=== PATIENT | male | born 1950 | race Caucasian/White ===

== ENCOUNTER 2019-09-12 11:41 | Outpatient (CLI) | payer MEDICARE, SELFPAY ==
--- NOTE | ~2019-09-12 | XR_ITS ---
EXAMINATION: XR sacroiliac joints min 3V DATE: 09/12/2019 12:37 INDICATION: Sacrococcygeal disorder. Low back pain. TECHNIQUE: 3 views of the sacroiliac joints were obtained. COMPARISON: CT abdomen 04/27/2007 FINDINGS: Bone alignment is normal. No fracture. There is mild osteoarthritis of the sacroiliac joint s. IMPRESSION: 1. Mild osteoarthritis of the sacroiliac joints. No evidence of inflammatory arthropathy. Reviewed, dictated and finalized at location A. NGS ANALYST IMPRESSION: 1. Mild osteoarthritis of the sacroiliac joints. No evidence of inflammatory ar thropathy.
--- NOTE | ~2019-09-12 | XR_ITS ---
EXAMINATION: XR lumbar spine 6V w bending DATE: 09/12/2019 12:37 INDICATION: Low back pain. TECHNIQUE: 7 views of lumbar spine were obtained. COMPARISON: None. FINDINGS: There is 3 mm retrolisthesis of L2 on L3 and L3 on L4. Vertebral body heights are normal. T he spine is hypomobile with flexion and extension. There is 6 degrees dextrocurvature of lumbar spine . There is mildly decreased disc height at L1-L2, L2-L3, and L3-L4. There is multilevel mild facet lopez int osteoarthritis. At L5-S1, there is severe right and moderate left facet joint osteoarthritis. IMPRESSION: 1. Mild lumbar spondylosis. Reviewed, dictated and finalized at location A. AL CONTROL LICENSING WORKER IMPRESSION: 1. Mild lumbar spondylosis.
== END 2019-09-12 11:42 | disposition home or self-care (01) ==
LOC: ANHIMG 11:48
PROVIDERS: PCP Internal Medicine; Visit Provider Physician Assistant
DX: M53.3 Sacrococcygeal disorders, not elsewhere classified (principal); M47.896 Other spondylosis, lumbar region
CPT/HCPCS: 72114; 72202

== ENCOUNTER → 2019-09-15 15:31 | Outpatient (CLI) | payer MEDICARE, SELFPAY ==
--- NOTE | ~2019-09-15 | MR_ITS ---
EXAMINATION: MR lumbar spine wo con DATE: 09/15/2019 16:38 INDICATION: Low back pain. TECHNIQUE: Magnetic resonance imaging (MRI) of the lumbar spine was performed without intravenous con trast. Sequences included sagittal T2-weighted FSE, sagittal T2-weighted FS FSE, sagittal T1-weighted FSE, and axial T2-weighted FSE. COMPARISON: Lumbar spine radiographs 09/12/2019 FINDINGS: There is 9 degrees dextrocurvature of lumbar spine. There is 3 mm retrolisthesis of L2 on L 3 and L3 on L4. There are Schmorl's nodes at multiple levels. There is mildly decreased disc height a t L1-L2, L2-L3, and L3-L4. The distal spinal cord signal intensity is normal. The conus medullaris is at L1. The following disc levels are specifically discussed: L1-L2: The disc is bulging and has an annular fissure. There is mild bilateral facet joint osteoarthr itis. There is mild right neural foraminal stenosis. There is mild central canal stenosis. L2-L3: The disc is bulging and has an annular fissure. There is moderate right and mild left facet lopez int osteoarthritis. There is mild left neural foraminal stenosis. There is mild central canal stenosi s. L3-L4: The disc is bulging and has an annular fissure. There is mild bilateral facet joint osteoarthr itis. There is moderate right and mild left neural foraminal stenosis. There is mild central canal st enosis. L4-L5: The disc does not extend beyond the endplate margin. There is severe bilateral facet joint ost eoarthritis. There is mild right neural foraminal stenosis. There is no central canal stenosis. L5-S1: The disc does not extend beyond the endplate margin. There is severe bilateral facet joint ost eoarthritis. There is mild bilateral neural foraminal stenosis. There is no central canal stenosis. IMPRESSION: 1. Mild lumbar spondylosis. Reviewed, dictated and finalized at location A. LIFTER IMPRESSION: 1. Mild lumbar spondylosis.
== END ==
PROVIDERS: PCP Internal Medicine; Visit Provider Nurse Practitioner Family
DX: M47.816 Spondylosis without myelopathy or radiculopathy, lumbar region (principal)
CPT/HCPCS: 72148

== ENCOUNTER 2020-07-23 13:35 | Outpatient (CLI) | payer MEDICARE, SELFPAY ==
--- NOTE | ~2020-07-23 | CT_ITS ---
EXAMINATION: CT lung screening DATE: 07/23/2020 14:10 INDICATION: Personal history of nicotine dependence TECHNIQUE: Computed tomography (CT) of the chest was performed without intravenous contrast. The dose -length product was 310.20 mGy-cm. Automated exposure control and iterative reconstruction technique were employed. COMPARISON: Comparison to multiple prior studies sequentially, with oldest reviewed study dated 01/25. FINDINGS: No thoracic lymphadenopathy. Heart size normal. No significant pleural or pericardial effus ion. Mild atherosclerosis. Stable small low-density lesions of the adrenal glands, most likely benign adenomas. Fatty infiltration of the liver. Small nodules of the right upper lobe measuring 2 mm or l ess. No endobronchial lesions. There is linear consolidation in the right middle and bilateral lower lobes, most likely atelectasis/scarring. No endobronchial lesions. There are a few small scattered ca lcified granulomas in the lung parenchyma. Mild thoracic spondylosis. IMPRESSION: 1. Lung-RADS category 2: Benign appearance or behavior. Continue annual screening with noncontrast lo w-dose chest CT in 12 months. Reviewed, dictated and finalized at location A. ING SPECIALIST IMPRESSION: 1. Lung-RADS category 2: Benign appearance or behavior. Continue annual screeni ng with noncontrast low-dose chest CT in 12 months.
== END 2020-07-23 13:36 | disposition home or self-care (01) ==
PROVIDERS: PCP Internal Medicine; Visit Provider Nurse Practitioner Family
DX: Z12.2 Encounter for screening for malignant neoplasm of respiratory organs (principal); Z87.891 Personal history of nicotine dependence
CPT/HCPCS: G0297

== ENCOUNTER 2021-08-26 09:21 | Outpatient (CLI) | payer MEDICARE, SELFPAY ==
--- NOTE | ~2021-08-26 | CT_ITS ---
EXAMINATION: CT lung screening DATE: 08/26/2021 09:41 INDICATION: Z87.891 - Personal history of nicotine dependence TECHNIQUE: Computed tomography (CT) of the chest was performed without intravenous contrast. Addition al 3D reconstructions utilizing coronal maximum intensity projection (MIP) were performed. Automated exposure control and iterative reconstruction technique were employed. The dose-length product was 42 4.72 mGy-cm. COMPARISON: None FINDINGS: Thin linear bands of discoid atelectasis/scarring in the bilateral lower lobes, lingula and right mid dle lobe. Tiny calcified nodule at the right apex consistent with old granulomatous disease. No discr ete noncalcified pulmonary nodules identified. No pulmonary edema or pleural effusion. Heart size is normal. No pericardial effusion. Minimal atherosclerotic calcification at the proximal left anterior descending coronary artery. Thoracic aorta is normal in caliber. Indeterminant 2.0 x 1.7 cm nodule po sterior to the lower lobe of the right thyroid and right of the upper thoracic esophagus. No other pa thologically enlarged thoracic lymphadenopathy. Diffuse hepatic steatosis. 1.6 similar low-attenuatio n left adrenal adenoma. Small gas and fluid-filled diverticulum arising from the fundus of the stomac h. Severe lower cervical, moderate upper lumbar and mild thoracic spondylosis. IMPRESSION: 1. Lung-RADS category 1: Negative. Continue annual screening with noncontrast low-dose chest CT in 12 months. 2. Isolated 2.0 x 1.7 cm indeterminate nodule at the right side of the thoracic inlet. Differential w ould include enlarged lymph node which could be reactive, metastatic or lymphoma, an exophytic right thyroid nodule were parathyroid adenoma. Reviewed, dictated and finalized at location A. GHT LOADING SUPERVISOR IMPRESSION: 1. Lung-RADS category 1: Negative. Continue annual screening with noncontrast l ow-dose chest CT in 12 months. 2. Isolated 2.0 x 1.7 cm indeterminate nodule at the right side of the thoracic inlet. Differential would include enlarged lymph node which could be reactive, metastatic or lymphoma, an exophytic right thyroid nodule were parathyroid terell noma.
== END 2021-08-26 09:22 | disposition home or self-care (01) ==
LOC: ANHIMG 09:26
PROVIDERS: PCP Internal Medicine; Visit Provider Nurse Practitioner Family
DX: Z87.891 Personal history of nicotine dependence (principal)
CPT/HCPCS: 71271

== ENCOUNTER 2022-08-27 08:51 | Outpatient (CLI) | payer MEDICARE, SELFPAY ==
--- NOTE | ~2022-08-27 | CT_ITS ---
EXAMINATION: CT lung screening DATE: 08/27/2022 09:24 INDICATION: Former smoker TECHNIQUE: Computed tomography (CT) of the chest was performed without intravenous contrast. Automate d exposure control and iterative reconstruction technique were employed. Exam dose: 389.20 mGy-cm to josé exam DLP. COMPARISON: 120 CT lung screening FINDINGS: Again noted are thin linear band of discoid atelectasis or scarring in the lower lobes, rodri gula, middle lobe. No suspicious pulmonary mass lesion is identified. No pulmonary infiltrate or cons olidation. Mild emphysematous changes of the lungs. Normal heart size. No thoracic aortic aneurysm. No suspicious enlarged hilar or mediastinal mass lesi on or lymphadenopathy. Decreased size of previously reported soft tissue nodule at the right thoracic inlet/superior mediast inum since 08/26/2021 No pericardial or pleural effusion. Occasional pancreatic calcifications suggesting mild chronic pancreatitis. Mild nodularity of the left adrenal gland, stable since 08/26/2021. Diverticulum of the posterior aspect of the gastric fundus. Degenerative changes of the cervical and thoracic spine. IMPRESSION: BI-RADS Category 1: Negative. Continue annual screening with noncontrast low-dose chest CT in 12 months Reviewed, dictated and finalized at Location A. Reviewed, dictated and finalized at location B. NTION MANAGER IMPRESSION: BI-RADS Category 1: Negative. Continue annual screening with nonco ntrast low-dose chest CT in 12 months
== END 2022-08-27 08:52 | disposition home or self-care (01) ==
PROVIDERS: PCP Internal Medicine; Visit Provider Nurse Practitioner Family
DX: Z12.2 Encounter for screening for malignant neoplasm of respiratory organs (principal); Z87.891 Personal history of nicotine dependence
CPT/HCPCS: 71271

== ENCOUNTER 2022-10-17 09:58 | Outpatient (CLI) | payer MEDICARE, SELFPAY ==
[2022-10-17 11:04] LABS: Influenza A QL RT-PCR Negative (Negative); Influenza B QL RT-PCR Negative (Negative); RSV RNA, RT-PCR Negative (Negative); SARS-CoV-2 RNA PCR Negative
== END 2022-10-17 09:59 | disposition home or self-care (01) ==
LOC: ANHLAB 10:00
PROVIDERS: PCP Internal Medicine; Visit Provider Internal Medicine
DX: R50.9 Fever, unspecified (principal); Z20.822 Contact with and (suspected) exposure to COVID-19
CPT/HCPCS: 87637

== ENCOUNTER 2023-03-23 08:11 | Outpatient (CLI) | payer MEDICARE, SELFPAY ==
--- NOTE | 2023-03-23 08:21 | ECG_ITS ---
Measurements Intervals [place] Rate: 71 P: -13 NE: 170 QRS: 12 QRSD: 101 T: 45 QT: 362 QTc: 394 Interpretive Statements SINUS RHYTHM NORMAL ELECTROCARDIOGRAM COMPARED TO ECG 04/28/2019 09:46:59 NO SIGNIFICANT CHANGES Electronically Signed On 03-23-2023 16:53:04 CDT by Kunal Jewell M.D.
[2023-03-23 09:28] LABS: Anion Gap 7 mmol/L (8-16); Blood Urea Nitrogen 18 mg/dL (9-20); Calcium 9.2 mg/dL (8.4-10.2); Carbon Dioxide 26 mmol/L (22-30); Chloride 102 mmol/L (98-107); Estimated Glomerular Filt Rate > 60; Glucose 129 mg/dL (65-110); Sodium 135 mmol/L (137-145)
== END 2023-03-23 08:12 | disposition home or self-care (01) ==
LOC: ANHSURGERY 08:15
PROVIDERS: Anesthesiology; PCP Internal Medicine; Visit Provider Surgery
DX: Z01.818 Encounter for other preprocedural examination (principal); I49.8 Other specified cardiac arrhythmias; E11.9 Type 2 diabetes mellitus without complications; I10 Essential (primary) hypertension
CPT/HCPCS: 36415; 80048; 93005

== ENCOUNTER 2023-03-25 00:53 | Day surgery (SDC) | payer MEDICARE, SELFPAY ==
--- NOTE | 2023-03-18 09:14 | PC.NURSE ---
Report to the Outpatient Waiting Room, entrance under the green pavilion located off [facility], at time _0730 on date __03/25/23 . Planned Procedure Time: __929 . Time changes happen often and if your time is changed the preop area will call you the afternoon before. - You and your visitor will be asked to self-screen and do not enter if you have any COVID symptoms. - A mask is optional within the hospital at this time. Patients may have clear liquids (water, carbonated beverages, clear teas, apple juice) until 3 hours prior to surgery with a maximum of 20 ounces. - No food from midnight until time of surgery - Infants may have breast milk until 4 hours before surgery, infant formula 6 hours prior to surgery. - Children will be allowed to drink immediately following surgery. If applicable, please bring a bottle or sippy cup to assist with drinking. Juice, water, soda, and popsicles are readily available. For infants on formula, please bring formula the day of surgery. Pacifiers are allowed. Take the following medications with a SIP of water the morning of surgery: ___TRELEGY INHALER DO NOT STOP ANY OF YOUR OTHER PRESCRIPTION MEDICATIONS PRIOR TO SURGERY ?EXCEPT THE FOLLOWING Medications to discontinue per physician ___ALL VITAMINS AND SUPPLEMENTS 3 DAYS PRE OP.LAST DOSE 03/22/[address] LAY Please no make-up, nail kiswahili, hairspray, perfume, deodorant, or body powder the day of surgery. No jewelry (including any body piercings) or valuables the day of surgery, leave them at home. Please take a shower or bath the night before, or the morning of, surgery with an antibacterial soap. Wear comfortable, loose fitting clothing. Children are encouraged to wear pajamas. - Jewelry must be removed prior to entering the operating room. Rings and piercings that are not removed may be cut off. - The hospital will not accept responsibility for valuables. - Please leave all valuables, including medications, at home the day of surgery. If you are going home after surgery, a licensed experienced truck driver must drive you home. - NO public transportation without another adult if you receive anesthesia. - We recommend that an adult stay with you for 24 hours following discharge. - We also recommend that you do not drive, make important decision, drink alcoholic beverages, or take any drugs that were not prescribed by your health care provider for at least 24 hours after your discharge time. For Pediatric surgeries, we recommend two adults accompany the child home. Follow any additional instructions given to you from your surgeon. If you or anyone in your household have experienced Covid symptoms in the past week, please notify your surgeon or the nurse liaison at the phone number below for possible testing. Telephone instructions given to ____PATIENT and asked if any additional questions and then verbalized understanding. Patient advised to call surgeon office or pre surgery nurse liaison [phone] if any additional questions.
[2023-03-18 09:27] VITALS: BMI 34.0
[2023-03-25] VITALS (9 sets, daily range): BP systolic 127–158; BP diastolic 64–85; PULSE 62–88; RESP 11–18; TEMP 36–36.6; O2SAT 93–100
[2023-03-25] MEDS: ACETAMINOPHEN 500 MG TABLET 1000 MG PO (07:31)
[2023-03-25] MEDS: LACTATED RINGERS 1,000 ML 30 ML IV CONT (07:45)
[2023-03-25] MEDS: KETOROLAC 15 MG/ML VIAL (*BKC) IV PUSH (07:58)
[2023-03-25 07:59] LABS: Glucose Point of Care 122 mg/dl (65-105)
--- NOTE | 2023-03-25 08:14 | WPDANESEPPF ---
Anes - Initial Pre Proc Eval Procedure: Operation Date: 03/25/23 09:30 Proposed Procedures p Hemorrhoidectomy and Proctosigmoidoscopy - Jose L Saunders MD Date/Time: 03/25/23 08:14 Surgeon: Jose L Saunders MD Pre Op Diagnosis: internal and external hemorhoids with complication Patient Data Age: 72 Gender: M Height: 1.88 m Weight: 118.6 kg Last Vital Signs Temp 36.0 C L 03/25/23 07:50 Pulse 80 03/25/23 07:50 Resp 18 03/25/23 07:50 BP 156/79 H 03/25/23 07:50 Pulse Ox 96 03/25/23 07:50 O2 Del Method Room Air 03/25/23 07:50 Allergies Allergy/AdvReac Type Severity Reaction Status Date / Time No Known Allergies Allergy Verified 03/18/23 09:02 Home Medications Medication Instructions Recorded Confirmed Type cholecalciferol (vitamin D3) 25 1,000 unit PO DAILY 05/20/19 03/18/23 History mcg (1,000 unit) capsule doxycycline hyclate 20 mg tablet 20 mg PO HS 05/20/19 03/18/23 History multivitamin with minerals-folic 0.4 mg PO DAILY 05/20/19 03/18/23 History acid 0.4 mg tablet (Adult One Daily Multivitamin) potassium gluconate 595 mg (99 mg) 99 mg PO DAILY 05/20/19 03/18/23 History tablet aspirin 81 mg tablet,delayed 81 mg PO DAILY 12/14/19 03/18/23 History release magnesium gluconate 27 mg 27 mg PO DAILY 12/14/19 03/18/23 History magnesium (500 mg) tablet (Mag-G) psyllium husk (aspartame) 3.4 1 ea PO DAILY 06/27/20 03/18/23 History gram/5.8 gram oral powder (Metamucil Sugar-Free (aspartame)) lisinopril 5 mg tablet 5 mg PO DAILY #90 tabs 06/10/22 03/18/23 Rx albuterol sulfate 90 mcg/actuation 1 - 2 puff inhalation Q4-6H PRN 08/19/22 03/18/23 Rx aerosol inhaler shortness of breath or wheezing #8.5 grams fluticasone propionate 50 2 spray intranasal DAILY PRN nasal 09/04/22 03/18/23 Rx mcg/actuation nasal congestion #48 mL spray,suspension Trelegy Ellipta 100 mcg-62.5 1 inh inhalation Q24H #60 ea 09/23/22 03/18/23 Rx mcg-25 mcg powder for inhalation (exgiistsdgg-hisoisoyz-jvxbbllx) blood sugar diagnostic (OneTouch #100 ea 09/23/22 03/06/23 Rx Verio test strips) atorvastatin 20 mg tablet 20 mg PO HS #90 tabs 12/09/22 03/18/23 Rx glipizide 10 mg tablet, extended 10 mg PO DAILY #90 tabs 12/09/22 03/18/23 Rx release 24 hr metformin 500 mg tablet 1,000 mg PO BID #360 tabs 03/03/23 03/18/23 Rx semaglutide 0.25 mg or 0.5 mg (2 0.25 mg (0.368 mL) subcut WEEKLY 03/12/23 03/18/23 Rx mg/3 mL) subcutaneous pen injector #3 mL (Ozempic) cetirizine 10 mg tablet (Zyrtec) 10 mg PO DAILY 03/18/23 03/18/23 History docusate sodium 100 mg capsule 100 mg PO HS 03/18/23 03/18/23 History (Stool Softener) Laboratory Tests 03/25/23 07:57 POC Capillary Glucose 122 H mg/dl (65-105) Patient hx anesthesia problems: none Family hx anesthesia problems: none Results Review: All pre-operative results and documents have been reviewed as part of the pre-operative evaluation. [facility] Past Medical History Medical History BMI 37.0-37.9, adult COPD (chronic obstructive pulmonary disease) Diabetes type 2, controlled DVT prophylaxis Hyperlipidemia Neuropathy Obesity Obesity (BMI 30-39.9) MARYANN (obstructive sleep apnea) uses orthotic Osteoarthritis Surgical History Surgical History History of total knee replacement (TKR) Status post total left knee replacement Family History Family History Sibling Patient's sister is in good health Family history of diabetes mellitus in first degree relative Father Cerebrovascular accident Patient's father is Family history of cardiovascular disease Mother Patient's mother is Family history of arthritis Family history of pancreatic cancer, Onset Age: 82 Family history of malignant neoplasm Other D
--- NOTE | 2023-03-25 09:36 | WPDHPUPDATE1 ---
History and Physical Update Update Date/Time: 03/25/23 09:36 History and Physical has been reviewed, including an updated exam of the patient. There are NO changes in the patient's condition. Risks, benefits, and alternatives have been discussed and questions answered. Patient agrees to proceed with procedure.
[2023-03-25] MEDS: ceFAZolin 2 GM/D5W 50 ML 2 GM/50 ML BAG IVPB (09:45)
[2023-03-25] MEDS: BUPivacaine HCL 0.5% 10 ML AMP 30 ML INFILTRATE (10:13)
[2023-03-25 10:57] LABS: Glucose Point of Care 98 mg/dl (65-105)
--- NOTE | 2023-03-25 10:57 | W.PM.PROC2 ---
Procedure Note - Detailed Date of Procedure 03/25/23 Pre-op Diagnosis internal and external hemorhoids with complication Post-op Diagnosis Same Procedure Performed Proctosigmoidoscopy, excision right posterior complex internal and external hemorrhoids, rubber-band ligation left lateral internal hemorrhoids Surgeon Jose L Saunders MD Insurance Account Manager Leroy Anesthesia General and Local (0.25% Marcaine with Exparel) Indications Patient has chronic prolapsing and bleeding internal and external hemorrhoids. He is taken to surgery now for proctosigmoidoscopy and hemorrhoidectomy. Findings Patient had large prolapse complex of internal and external hemorrhoids in the right posterior location as well as large internal hemorrhoid complex with minimal external hemorrhoid in the left lateral position. Description of Procedure Patient was taken to surgery and induced into general anesthesia. He was then turned into a prone position and then positioned in prone elroy-knife position. The buttocks were taped apart. Prep and drape was carried out. I 1st looked at the anal canal using a small and then a medium Hill-Khan anoscope. Patient's prep was fair as he still had some stool even some solid stool in the anal canal and rectum, later seen on proctosigmoidoscopy. Once the hemorrhoids were noted, I then infiltrated local anesthetic. 20 cc deep subdermal was infiltrated circumferentially. 20 cc intra sphincteric was then infiltrated circumferentially. Proctosigmoidoscopy was carried out. I was able to go to 18 cm. No polyps or other lesions, particularly no sources of bleeding or stigmata of bleeding were seen more proximal than the anal canal. I then turned my attention to the inguinal canal. Unfortunately, with injection of the local, a large hematoma had formed submucosally on the patient's left side near the hemorrhoids. This was stable but made visualization more difficult. We turned our attention 1st to the right posterior complex of internal and external hemorrhoids. This complex was a stage IV hemorrhoid. I excised the internal as well as the external hemorrhoid. The wound was closed with running locking 3-0 chromic suture. The closure appeared hemostatic. I then turned my attention to the left lateral hemorrhoids. There was not much of in external hemorrhoid associated with the large internal hemorrhoids. I rubber-band ligated the internal hemorrhoids. This worked well and there was really no external hemorrhoid to be seen afterwards. I then again looked in the anal canal with Hill-Khan anoscope for other pathology. The previously mentioned submucosal hematoma was stable. There were no signs of mucosal ischemia. No other hemorrhoids or other pathology were seen. Instruments were removed. Xeroform gauze fluffs were placed over the rectum. These were taped in place. Patient was then returned to a supine position, awakened and extubated. He was taken to recovery in good condition. Estimated Blood Loss -10.0 Drains No Packing No Pathology Yes (Right posterior complex of internal and external hemorrhoids) Complications No immediate complications Condition Stable Disposition PACU [facility] Billing Surgery - Charge Forward: Surgery Billing (Excision single complex internal and external hemorrhoids, rubber-band ligation internal hemorrhoids, proctosigmoidoscopy.)
== END 2023-03-25 12:38 | disposition home or self-care (01) ==
PROVIDERS: PCP Internal Medicine; Visit Provider Surgery
PROC: (CPT 46260; principal; 2023-03-25 09:30)
DX: K64.8 Other hemorrhoids (principal); K64.4 Residual hemorrhoidal skin tags; J44.9 Chronic obstructive pulmonary disease, unspecified; E78.5 Hyperlipidemia, unspecified; E11.40 Type 2 diabetes mellitus with diabetic neuropathy, unspecified; G47.33 Obstructive sleep apnea (adult) (pediatric); Z79.51 Long term (current) use of inhaled steroids; Z79.82 Long term (current) use of aspirin; Z79.84 Long term (current) use of oral hypoglycemic drugs; Z79.899 Other long term (current) drug therapy; E66.9 Obesity, unspecified; Z68.33 Body mass index [BMI] 33.0-33.9, adult; Z87.891 Personal history of nicotine dependence
CPT/HCPCS: 46260; 36415; 80048; 82948; 88304; 93005; A9270; C9290; J0690; J1100; J1885; J2250; J2405; J2704; J2710; J3010; J7120

== ENCOUNTER 2023-04-21 11:15 | Outpatient (CLI) | payer MEDICARE, SELFPAY ==
[2023-04-21 12:31] LABS: SARS-CoV-2 RNA PCR Positive (Negative)
== END 2023-04-21 11:16 | disposition home or self-care (01) ==
PROVIDERS: PCP Internal Medicine; Visit Provider Internal Medicine
DX: J06.9 Acute upper respiratory infection, unspecified (principal)
CPT/HCPCS: 87635

== ENCOUNTER 2023-08-28 10:31 | Outpatient (CLI) | payer MEDICARE, SELFPAY ==
--- NOTE | ~2023-08-28 | CT_ITS ---
EXAMINATION: CT lung screening DATE: 08/28/2023 10:34 INDICATION: former smoker TECHNIQUE: Computed tomography (CT) of the chest was performed without intravenous contrast. Addition al 3D reconstructions utilizing coronal maximum intensity projection (MIP) were performed. Automated exposure control and iterative reconstruction technique were employed. The dose-length product was 44 5.13 mGy-cm. COMPARISON: None FINDINGS: There are scattered linear bands of discoid atelectasis/scarring most prominent in the bilateral lowe r lobes and to lesser degree in the basilar lingula and right middle lobe. Tiny calcified nodules in the right middle lobe consistent with old granulomatous disease. No other suspicious pulmonary nodule s, pneumonia, pulmonary edema or pleural effusion. Heart size is normal. Minimal scattered atheroscle rotic coronary artery calcification. No pericardial effusion. Thoracic aorta is normal in caliber. No pathologically enlarged thoracic lymphadenopathy. There is a gastric diverticulum at the fundus. 1.7 cm low-attenuation left adrenal adenoma. Visualized upper abdomen is otherwise unremarkable. Severe lower cervical and moderate thoracic and upper lumbar spondylosis. IMPRESSION: 1. Lung-RADS category 1: Negative. Continue annual screening with noncontrast low-dose chest CT in 12 months. Reviewed, dictated and finalized at location A. NT CUTTER IMPRESSION: 1. Lung-RADS category 1: Negative. Continue annual screening with noncontrast l ow-dose chest CT in 12 months.
== END 2023-08-28 10:32 | disposition home or self-care (01) ==
PROVIDERS: PCP Internal Medicine; Visit Provider Nurse Practitioner Family
DX: Z12.2 Encounter for screening for malignant neoplasm of respiratory organs (principal); Z87.891 Personal history of nicotine dependence
CPT/HCPCS: 71271

== ENCOUNTER 2024-08-31 10:23 | Outpatient (CLI) | payer MEDICARE, SELFPAY ==
--- NOTE | ~2024-08-31 | CT_ITS ---
CT Scan of the Chest without Contrast: Clinical Indication: Lung cancer screening, nicotine dependence Technique: Contiguous sections were acquired throughout the chest without intravenous contrast. Dose reduction technique was used on this scan by utilizing automated exposure control and iterative recon struction technique. The dose-length product (DLP) was 402.15 mGy-cm. COMPARISON: 08/28/2023 Findings: There is no evidence of any significant mediastinal, hilar or axillary lymphadenopathy. The mediastin al soft tissues appear normal. There is no evidence of pleural or pericardial effusion. No pulmonary nodule. There is mild right basilar atelectasis or scarring. Images through the upper abdomen reveal stable left adrenal adenoma. Impression: Lung RADS 1: Negative. 12 month follow-up screening CT advised. Reviewed, dictated and finalized at location . MBLER SHOW MOTOR Impression: Lung RADS 1: Negative. 12 month follow-up screening CT advised.
--- OUTSIDE RECORDS SUMMARY | 2024-09-01 23:16 | XMS_ITS | Encounter Summary ---
Author Organization [facility] Health Address [address] [facility] [place] [address] Care Team Providers Care Digital Community Manager Name Role Phone Kenney Nayak DO Primary Care Provider [phone]- [phone] Encounter Details Date Type Department Care Team (Late st Contact Info) Description 06/27/2023 Lab Requisition [facility] Lab [address] [facility], [place] [id number] Jose L Cali MD [address] [place] [address] Social History Tobacco Use Types Packs/Day Years Used Date Smoking Tobacco: Never Assessed Sex and Gender Information Value Date Recorded Sex Assigned at Not on file Gender Identity Not on file Sexual Orientation Not on file documented as of this encounter Plan of Treatment Not on file documented as of this encounter Procedures Procedure Name Priority Date/Time Associated Diagnosis Comments DERMATOPATHOLOGY Routine 06/24/2023 12:0 0 AM BUSINESS ANALYTICS INTERN documented in this encounter Results * DERMATOPATHOLOGY (06/24/2023 12:00 AM BUSINESS ANALYTICS INTERN) Case Report Dermatopathology Report ? Case: [id number] ? Authorizing Provider: ??Jose L Cali MD ?Collected: ? 06/24/2023 12:00 AM ? Ordering Location: ? [facility] ? Received: ?06/27/2023 08:00 AM ? Pathologist: ? Jo Ann Perdomo MD ? Specimen: ?Skin, left cheek at jawline ? 3 12:26 PM [facility] DERMATOPATHOLOGY LABORATORY Final Diagnosis Specimen A. SKIN, left cheek at jawline: HYPERPLASTIC (HYPERTROPHIC) ACTINIC KERATOSIS (L57.0) (see microscopic description) 3 12:26 PM [facility] DERMATOPATHOLOGY LABORATORY Clinical History R/O SCC, BCC, Kulwant, ISK 3 12:26 PM [facility] DERMATOPATHOLOGY LABORATORY Gross Description Specimen A: Received is one formalin filled container labeled with the patient's name and designated left cheek at jawline. The specimen consists of a shave biopsy measuring 7x5x2 mm. Jar 0. 3 12:26 PM [facility] DERMATOPATHOLOGY LABORATORY Microscopic Description Specimen A. SKIN, left cheek at jawline: There is hyperkeratosis. There is epidermal hyperplasia with disorderly maturation of keratinocytes with nuclear pleomorphism confined to the lower half of the epidermis. 3 12:26 PM [facility] DERMATOPATHOLOGY LABORATORY Disclaimer An external and internal positive and negative controls are appropriate for the histochemical, immunohistochemical and immunofluorescence stain(s) in this case (if any), except where stated explicitly. The performance characteristics of the stain(s) cited in this report were developed and its performance characteristic determined by the Dermatopathology Laboratory at [facility], directed by Dr. Stu Murguia. These tests need not be, and therefore are not, approved by the [place] Food and Drug Administration. The tests are used for clinical purposes. Billing Codes Specimen Charges Stain Charges 89006 1 3 12:26 PM BUSINESS ANALYTICS INTERN DERMATOPATHOLOGY LABORATORY Embedded Images 3 12:26 PM BUSINESS ANALYTICS INTERN DERMATOPATHOLOGY LABORATORY Pathology/Cytolog y TISSUE SPECIMEN FROM SKIN / Unknown 06/24/2023 06/27/2023 8:00 AM BUSINESS ANALYTICS INTERN Jose L Cali MD LAB - PATHOLOGY/CYTO LOGY ORDERABLES DERMATOPATHOLOGY LABORATORY [facility] - Department of Dermatology [facility] Medicine [address] [place] [address], [address] [phone] documented in this encounter Visit Diagnoses Not on filedocumented in this encounter Care Teams Digital Community Manager Relationship Specialty Start Date End Date Kenney Nayak DO [address] [facility] [address] [place] [address] PCP - General 02/14/16 documented as of this encounter
--- OUTSIDE RECORDS SUMMARY | 2024-09-01 23:16 | XMS_ITS | Clinical Summary ---
Author Organization [facility] Address [address] [place] [address] Care Team Providers Care Grease Remover Name Role Phone Kenney Nayak DO Primary Care Provider Source Comments [facility],non-owned Affiliates and Associated Physician Practices is amultiple site organization consisting of ambulatory clinics and hospital sitesin [place], [place], [place] and [place]. This disclosure is being madepursuant to the Care Everywhere program and may not contain all information available regarding this patient. Last updated 18.[facility] Social History Tobacco Use Types Packs/Day Years Used Date Smoking Tobacco: Never Assessed Sex and Gender Information Value Date Recorded Sex Assigned at Not on file Gender Identity Not on file Sexual Orientation Not on file Plan of Treatment Health Maintenance Due Date Last Done Comments COLOGUARD (AGES 45-75) - COL ON CA SCREENING 1949 COLON MONITORING 1949 COLONOSCOPY - COLON CA SCREENING 1949 CT COLONOGRAPHY - COLON CA SCREENING 1949 Colorectal Cancer Screening 1949 FIT - COLON CA SCREENING 1949 FLEX SIG - COLON CA SCREENING 1949 LIPID TESTING 1949 HEPATITIS C SCREENING 04/11/1967 DTAP/TDAP/TD VACCINES (1 - Tdap) 1968 PNEUMOCOCCAL VACCINE 50+ (1 of 1 - PCV) 1999 ZOSTER VACCINE (1 of 2) 1999 COVID-19 VACCINE ( - 2023-2 5 season) 2024 INFLUENZA VACCINE (#1) 2024 Respiratory Syncytial Virus (RSV) Vaccine Pt: or over 60 yrs (1 - 1-dose 75+ series) 2024 DEPRESSION SCREENING 08/10/2024 MEDICARE AWV ? CALENDAR YEAR 2024 HEPATITIS B VACCINE Aged Out No longe r eligible based on patient's age to complete this topic HIB VACCINE Aged Out No longer eligi ble based on patient's age to complete this topic HPV VACCINE Aged Out No longer eligi ble based on patient's age to complete this topic MENINGOCOCCAL (Group B) VACCINE Aged Out No longer eligible based on patient's age to complete this topic MENINGOCOCCAL VACCINE Aged Out No checo alisson eligible based on patient's age to complete this topic Care Teams Grease Remover Relationship Specialty Start Date End Date Kenney Nayak DO [address] [facility] [address] [place] [address] PCP - General 02/14/16
--- OUTSIDE RECORDS SUMMARY | 2024-09-01 23:16 | XMS_ITS | Encounter Summary ---
Author Organization [facility] Address [address] [place] [place] [address] Care Team Providers Care Communications Tower Technician Name Role Phone Kenney Nayak DO Primary Care Provider Encounter Details Date Type Department Care Team (Late st Contact Info) Description 08/25/2019 Lab Requisition [facility] [address] [place] [id number] Jose L Cali MD [address] [place] [address] Social History Tobacco Use Types [...] Priority Date/Time Associated Diagnosis Comments DERMATOPATHOLOGY Routine 08/24/2019 12:0 0 AM AUTOMOTIVE LEASING SALES REPRESENTATIVE documented in this encounter Results * DERMATOPATHOLOGY (08/24/2019 12:00 AM AUTOMOTIVE LEASING SALES REPRESENTATIVE) Case Report Dermatopathology Report ? Case: [id number] ? Authorizing Provider: ??Jose L Cali MD ?Collected: ? 08/24/2019 12:00 AM ? Ordering Location: ? [facility] ?Received: ?08/25/2019 12:34 PM ? Pathologist: ? Gerard Murguia MD ? Specimen: ?Skin, right upper inner arm ? 0 12:07 PM [facility] DERMATOPATHOLOGY LABORATORY Final Diagnosis Specimen A. SKIN, right upper inner arm: ACROCHORDON (SOFT FIBROMA, SKIN TAG) (L91.8) 0 12:07 PM [facility] DERMATOPATHOLOGY LABORATORY Clinical History R/O ISK, nevus, tag. 0 12:07 PM [facility] DERMATOPATHOLOGY LABORATORY Gross Description Specimen A: Received is one formalin filled container labeled with the patient's name and designated right upper inner arm. The specimen consists of a shave biopsy measuring 6x5p73ky, bisected. Jar 0. 0 12:07 PM [facility] DERMATOPATHOLOGY LABORATORY Microscopic Description Specimen A. SKIN, right upper inner arm: There is a gently folded epidermis surrounding a connective tissue core in which fat and collagen are intermingled. 0 12:07 PM [facility] DERMATOPATHOLOGY LABORATORY Disclaimer An external and internal positive and negative controls are appropriate for the histochemical, immunohistochemical and immunofluorescence stain(s) in this case (if any), except where stated explicitly. The performance characteristics of the stain(s) cited in this report were developed and its performance characteristic determined by the Dermatopathology Laboratory at [facility], directed by Dr. Stu Murguai. These tests need not be, and therefore are not, approved by the [place] Food and Drug Administration. The tests are used for clinical purposes. Billing Codes Specimen Charges Stain Charges 84015 1 0 12:07 PM AUTOMOTIVE LEASING SALES REPRESENTATIVE DERMATOPATHOLOGY LABORATORY Embedded Images 0 12:07 PM AUTOMOTIVE LEASING SALES REPRESENTATIVE DERMATOPATHOLOGY LABORATORY Pathology/Cytolog y TISSUE SPECIMEN FROM SKIN / Unknown 08/24/2019 08/25/2019 12:34 PM AUTOMOTIVE LEASING SALES REPRESENTATIVE Jose L Cali MD LAB - PATHOLOGY/CYTO LOGY ORDERABLES DERMATOPATHOLOGY LABORATORY [facility] - Department of Dermatology [address] [place] [address] 5th Floor Lab [address] [phone] documented in this encounter Visit Diagnoses Not on filedocumented in this encounter Additional Health Concerns Infection Onset Date Last Indicated Resolved Time COVID-19 Under Investigation 02/12/2020 02/12/2020 02/13/2020 6:11 PM CDT documented as of this encounter Care Teams Communications Tower Technician Relationship Specialty Start Date End Date Kenney Nayak DO [address] [facility] [address] [facility] [address] [place] [address] PCP - General 02/14/16 documented as of this encounter
--- OUTSIDE RECORDS SUMMARY | 2024-09-01 23:16 | XMS_ITS | Clinical Summary ---
Author Organization [facility] Address [address] [address] Phone Care Team Providers Care Assistant Media Planner Name Role Phone Kenney Nayak DO Primary Care Provider Allergies No known active allergies Medications Budesonide-Form oterol Fumarate (SYMBICORT IN) take 2 Puffs by inhalation every morning. Active Tiotropium [place] Monohydrate (SPIRIVA HANDIHALER IN) take 1 Cap by inhalation every morning. Active fluticasone (FLOVENT HFA) 110 MCG/ACT Aerosol take 2 Puffs by inhalation every evening. Active glimepiride (AMARYL) 2 MG Tablet Take 2 mg by mouth every morning. Active aspirin EC 81 MG Tablet Delayed Response Take 81 mg by mouth nightly. Active MULTIPLE VITAMIN PO Take 1 Tab by mouth daily. Active Doxycycline Hyclate 20 MG TabletIndicatio ns:gums Take by mouth 2 times daily. Active Potassium 99 MG Tablet Take 2 Tabs by mouth every morning. Active metFORMIN (GLUCOPHAGE) 500 MG Tablet Take 500 mg by mouth 2 times daily (with meals). Active vitamin D3 (CHOLECALCIFERO L) 500 UNIT Tablet Take 500 Units by mouth every morning. Active diphenhydrAMINE (BENADRYL) 25 MG Tablet Take 50 mg by mouth 2 times daily. Active FLUTICASONE PROPIONATE, NASAL, NA 1 [place] by Nasal route every evening. Active atorvastatin (LIPITOR) 20 MG Tablet Take 20 mg by mouth every evening. Active Liraglutide (VICTOZA SC) 0.6 mg by Subcutaneous route every morning. Active Magnesium 250 MG Tablet Take by mouth every morning. Active Polyethylene Glycol 3350 (MIRALAX PO) Take by mouth. Ac tive Family History Medical History Relation Name Comments Diabetes Brother Stroke Father Cancer Mother pancreatic Relation Name Status Comments Brother Father Mother Social History Tobacco Use Types Packs/Day Years Used Date Smoking Tobacco: Former Cigarettes 1 53.1 1 08/31/1964 - 08/10/2018 Smokeless Tobacco: Never Tobacco Cessation:Counseling Given: No Alcohol Use Standard Drinks/Week Comments No 0 (1 standard drink = 0.6 oz pur e alcohol) Sex and Gender Information Value Date Recorded Sex Assigned at Not on file Legal Sex Male 8:51 PM CDT Gender Identity Not on file Sexual Orientation Not on file Last Filed Vital Signs Vital Sign Reading Time Taken Comments Blood Pressure 132/76 04/12/2020 1:49 PM CDT Pulse 95 04/12/2020 1:49 PM CDT Temperature 36.3 ??C (97.4 ??F) 04/12/2020 1:49 PM CD T Respiratory Rate 22 04/12/2020 1:49 PM CDT Oxygen Saturation 95% 04/12/2020 1:49 PM CDT Inhaled Oxygen Concentration - - Weight 128.4 kg (283 lb) 04/12/2020 1:49 PM CDT Height 188 cm (6' 2 ) 04/12/2020 1:49 PM CDT Body Mass Index 36.34 04/12/2020 1:49 PM CDT Plan of Treatment Health Maintenance Due Date Last Done Comments Hepatitis C Virus (HCV) Screening 1950 TdaP Immunization 1950 Cologuard 1999 Immunochemical Fecal Occult Blood 1999 Influenza Immunization (#1) 04/10/202404/10, 04/08/2017, 04/23/2016, Additional history exists SARS-COV-2 Immunization ( season) 2024 05/06/2021, 10/09/2020, 09/09/2020 Respiratory Syncytial Virus (RSV) Immunization (Adult) (1 - 1-dose 75+ series) 2024 Colonoscopy 02/14/2025 02/15/2020, 05/11, 07/14/2017 Colorectal Cancer Screening 02/14/2025 02/15/2020, 05/11, 07/14/2017 Pneumococcal Immunization (50+ years) Completed 04/09/2018, 04/08/2017 Pneumococcal Immunization Combined Discontinued 04/09/2018, 04/08/2017 Zoster Immunization Completed 08/24/2018, 05/27/2018, 10/06/2014 Hepatitis B Immunization Aged Out No longer eligible based on patient's age to complete this topic Meningococcal Immunization (ACWY) Aged Out No longer eligible based on patient's age to complete this topic Rotavirus Immunization Aged Out No lo nger eligible based on patient's age to complete this topic [facility] Care Teams Assistant Media Planner Relationship Specialty Start Date End Date Kenney Nayak DO [address] [place] [address] PCP - General Internal Medicine 05/06/17
--- OUTSIDE RECORDS SUMMARY | 2024-09-01 23:16 | XMS_ITS | Referral Summary ---
Author Organization [facility] Address [address] [facility] [address] Care Team Providers Care Card Folder Name Role Phone Kenney Nayak DO Primary Care Provider [phone]- [phone] Source Comments [facility],non-owned Affiliates and Associated Physician Practices is amultiple site organization consisting of ambulatory clinics and hospital sitesin [place], [place], [place] and [place]. This disclosure is being madepursuant to the Care Everywhere program and may not contain all information available regarding this patient. Last updated 18.[facility] [employer] Social History Tobacco Use Types Packs/Day Years Used Date Smoking Tobacco: Never Assessed Sex and Gender Information Value Date Recorded Sex Assigned at Not on file Gender Identity Not on file Sexual Orientation Not on file Plan of Treatment Not on file Care Teams Card Folder Relationship Specialty Start Date End Date Kenney Nayak DO [address] [facility] [address] [place] [address] PCP - General 02/14/16
--- OUTSIDE RECORDS SUMMARY | 2024-09-01 23:16 | XMS_ITS | Patient Health Summary ---
Author Organization [facility] Address [address] [place] [address] Care Team Providers Care Supervisor Concrete Pipe Plant Name Role Phone Kenney Nayak DO Primary Care Provider [phone] Note from [facility],non-owned Affiliates and Associated Physician Practices is amultiple site organization consisting of ambulatory clinics and hospital sitesin [place], [place], [place] and [place]. This disclosure is being madepursuant to the Care Everywhere program and may not contain all information available regarding this patient. Last updated 18.[facility] Social History Tobacco Use Types Packs/Day Years Used Date Smoking Tobacco: Never Assessed Sex and Gender Information Value Date Recorded Sex Assigned at Not on file Gender Identity Not on file Sexual Orientation Not on file Procedures * DERMATOPATHOLOGY(Performed 06/24/2023) * DERMATOPATHOLOGY(Performed 07/23/2021) * SARS-COV-2 (COVID-19) IN HOUSE(Performed 02/12/2020) * DERMATOPATHOLOGY(Performed 08/24/2019) * DERMATOPATHOLOGY(Performed 02/13/2016) Results * DERMATOPATHOLOGY (06/24/2023 12:00 AM RESIDENTIAL GLAZIER) Only the most recent of4 resultswithin the time period is included. Case Report Dermatopathology Report ? Case: [id number] ? Authorizing Provider: ??Jose L Cali MD ?Collected: ? 06/24/2023 12:00 AM ? Ordering Location: ? [facility] ? Received: ?06/27/2023 08:00 AM ? Pathologist: ? Jo Ann Perdomo MD ? Specimen: ?Skin, left cheek at jawline ? 3 12:26 PM [facility] DERMATOPATHOLOGY LABORATORY Final Diagnosis Specimen A. SKIN, left cheek at jawline: HYPERPLASTIC (HYPERTROPHIC) ACTINIC KERATOSIS (L57.0) (see microscopic description) 3 12:26 PM [facility] DERMATOPATHOLOGY LABORATORY Clinical History R/O SCC, BCC, Kulwant, ISK 3 12:26 PM [facility] DERMATOPATHOLOGY LABORATORY Gross Description Specimen A: Received is one formalin filled container labeled with the patient's name and designated left cheek at jawline. The specimen consists of a shave biopsy measuring 7x5x2 mm. Jar 0. 3 12:26 PM [facility] DERMATOPATHOLOGY LABORATORY Microscopic Description Specimen A. SKIN, left cheek at jawline: There is hyperkeratosis. There is epidermal hyperplasia with disorderly maturation of keratinocytes with nuclear pleomorphism confined to the lower half of the epidermis. 3 12:26 PM [facility] DERMATOPATHOLOGY LABORATORY Disclaimer An external and internal positive and negative controls are appropriate for the histochemical, immunohistochemical and immunofluorescence stain(s) in this case (if any), except where stated explicitly. The performance characteristics of the stain(s) cited in this report were developed and its performance characteristic determined by the Dermatopathology Laboratory at [facility], directed by Dr. Stu Murguia. These tests need not be, and therefore are not, approved by the [place] Food and Drug Administration. The tests are used for clinical purposes. Billing Codes Specimen Charges Stain Charges 43540 1 3 12:26 PM RES[facility] G[facility]IER DERMATOPATHOLOGY LABORATORY Embedded Images 3 12:26 PM RESIDENT[facility] GLAZIER DERMATOPATHOLOGY LABORATORY Pathology/Cytolog y TISSUE SPECIMEN FROM SKIN / Unknown 06/24/2023 06/27/2023 8:00 AM RESIDENTIAL GLAZIER Jose L Cali MD LAB - PATHOLOGY/CYTO LOGY ORDERABLES DERMATOPATHOLOGY LABORATORY [facility] - Department of Dermatology [address], [address] [phone] * SARS-COV-2 (COVID-19) IN HOUSE (02/12/2020 9:30 AM CDT) COVID-19 PCR Not detected Not detected, Invalid 02/13/2020 6:11 PM CDT [facility] MICROBIOLOG[facility] Microbiology SPECIMEN FROM NASOPHARYNGEAL STRUCTURE / Unknown Collection / Unknown 02/12/2020 9:30 AM CDT 02/12/2020 4:36 PM CDT Narrative [facility]CRO[facility] - 02/13/2020 6:11 PM CDT This Real Time RT-PCR assay was developed and its performance characteristics determined by [facility]. This test has been authorized by the Food and Drug administration (FDA)under an Emergency Use Authorization (EUA). This test has been validated in accordance with the FDA's guidance document Policy for Diagnostic Testing in Laboratories Certified to perform High Complexity Testing under CLIA prior to Emergency Use Authorization for Coronavirus Disease-2019 during the Public Health Emergency issued on October 08, 2019. FDA independent review of this validation is pending. This test is only authorized for the duration of time the declaration that circumstances exist justifying the authorization of emergency use of in vitro diagnostic tests for detection of SARS-CoV-2 virus and/or diagnosis of COVID-19 infection under section 564(b)(1) of the Act, 21 U.S.C 360bbb-3 (b)(1), unless the authorization is terminated or revoked sooner. Umesh Brewer DO LAB - MICROBIOLOGY O RDERABLES [facility] [address] [place], [place] [address], [facility] [phone] Care Teams Supervisor Concrete Pipe Plant Relationship Specialty Start Date End Date Kenney Nayak DO [address] [facility] [address] [facility] [address] [place], [place] [id number] PCP - General 02/14/16
--- OUTSIDE RECORDS SUMMARY | 2024-09-01 23:16 | XMS_ITS | Encounter Summary ---
Author Organization [facility] Address [address] [facility] [place] [address] Care Team Providers Care Biology Faculty Member Name Role Phone Kenney Nayak DO Primary Care Provider [phone] Encounter Details Date Type Department Care Team (Late st Contact Info) Description 02/12/2020 Lab Requisition [facility] [address] [place] [address] Umesh Brewer DO [address] [place] [address] Social History Tobacco Use Types Packs/Day Years Used Date Smoking Tobacco: Never Assessed Sex and Gender Information Value Date Recorded Sex Assigned at Not on file Gender Identity Not on file Sexual Orientation Not on file documented as of this encounter Plan of Treatment Not on file documented as of this encounter Procedures Procedure Name Priority Date/Time Associated Diagnosis Comments SARS-COV-2 (COVID-19) IN HOUSE Routine 02/12/2020 9:30 AM CDT documented in this encounter Results * SARS-COV-2 (COVID-19) IN HOUSE (02/12/2020 9:30 AM CDT) COVID-19 PCR Not detected Not detected, Invalid 02/13/2020 6:11 PM CDT [facility]CROBI[facility] Microbiology SPECIMEN FROM NASOPHARYNGEAL STRUCTURE / Unknown Collection / Unknown 02/12/2020 9:30 AM CDT 02/12/2020 4:36 PM CDT Narrative [facility] - 02/13/2020 6:11 PM CDT This Real Time RT-PCR assay was developed and its performance characteristics determined by [facility]biology Laboratory. This test has been authorized [...] Brewer DO LAB - MICROBIOLOGY O RDERABLES [facility] [address] [place] [address], [facility] [phone] documented in this encounter Visit Diagnoses Not on filedocumented in this encounter Additional Health Concerns Infection Onset Date Last Indicated Resolved Time COVID-19 Under Investigation 02/12/2020 02/12/2020 02/13/2020 6:11 PM CDT documented as of this encounter Care Teams Biology Faculty Member Relationship Specialty Start Date End Date Kenney Nayak DO [address] [place] [address] PCP - General 02/14/16 documented as of this encounter
--- OUTSIDE RECORDS SUMMARY | 2024-09-01 23:16 | XMS_ITS | Encounter Summary ---
Author Organization [facility] Address [address] [place] [address] Care Team Providers Care Lighting Engineer Name Role Phone Kenney Nayak DO Primary Care Provider Encounter Details Date Type Department Care Team (Late st Contact Info) Description 07/24/2021 Lab Requisition [facility] Care DermPath Lab [address] [place] [id number] Jose L Cali MD [address] [place] [address] Social History Tobacco Use Types [...] Priority Date/Time Associated Diagnosis Comments DERMATOPATHOLOGY Routine 07/23/2021 12:0 0 AM SQUEEGEE OPERATOR documented in this encounter Results * DERMATOPATHOLOGY (07/23/2021 12:00 AM SQUEEGEE OPERATOR) Case Report Dermatopathology Report ? Case: [id number] ? Authorizing Provider: ??Jose L Cali MD ?Collected: ? 07/23/2021 12:00 AM ? Ordering Location: ? [facility] ?Received: ?07/24/2021 12:50 PM ? Pathologist: ? Ananya Wiley MD ? Specimen: ?Skin, left proximal extensor forearm ? 8:34 AM [facility] DERMATOPATHOLOGY LABORATORY Amended Report Gross description changed from shave biopsy to shave removal. 8:34 AM [facility] DERMATOPATHOLOGY LABORATORY Final Diagnosis Specimen A. 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 Lopez's. BCC. Check margins 8:34 AM [facility] DERMATOPATHOLOGY LABORATORY Gross Description Specimen A: Received is one formalin filled container labeled with the patient's name and designated left proximal extensor forearm. The specimen consists of a shave removal measuring 09z72x3 mm, inked. Jar 0. 8:34 AM [facility] DERMATOPATHOLOGY LABORATORY Microscopic Description Specimen A. SKIN, left proximal extensor forearm: The epidermis shows parakeratosis, full thickness disorderly maturation of keratinocytes, mitoses at different levels, and dyskeratotic cells. This lesion is not present at the sampled margin of the specimen. 8:34 AM [facility] DERMATOPATHOLOGY LABORATORY Disclaimer An external and internal positive and negative controls are appropriate for the histochemical, immunohistochemical and immunofluorescence stain(s) in this case (if any), except where stated explicitly. The performance characteristics of the stain(s) cited in this report were developed and its performance characteristic determined by the Dermatopathology Laboratory at [facility], directed by Dr. Stu Murguia. These tests need not be, and therefore are not, approved by the [place] Food and Drug Administration. The tests are used for clinical purposes. Billing Codes Specimen Charges Stain Charges 04066 1 1 8:34 AM SQUEEGEE OPERATOR DERMATOPATHOLOGY LABORATORY Embedded Images 1 8:34 AM SQUEEGEE OPERATOR DERMATOPATHOLOGY LABORATORY Pathology/Cytolog y TISSUE SPECIMEN FROM SKIN / Unknown 07/23/2021 07/24/2021 12:50 PM SQUEEGEE OPERATOR Jose L Cali MD LAB - PATHOLOGY/CYTO LOGY ORDERABLES DERMATOPATHOLOGY LABORATORY [facility] - Department of Dermatology [address], [address] [phone] documented in this encounter Visit Diagnoses Not on filedocumented in this encounter Care Teams Lighting Engineer Relationship Specialty Start Date End Date Kenney Nayak DO [address] [facility] [address] [facility] [address] [place] [address] PCP - General 02/14/16 documented as of this encounter
== END 2024-08-31 10:24 | disposition home or self-care (01) ==
PROVIDERS: PCP Internal Medicine; Visit Provider Nurse Practitioner Family
DX: Z12.2 Encounter for screening for malignant neoplasm of respiratory organs (principal); Z87.891 Personal history of nicotine dependence
CPT/HCPCS: 71271

== ENCOUNTER 2025-01-19 09:22 | Outpatient (CLI) | payer MEDICARE, SELFPAY ==
--- NOTE | ~2025-01-19 | US_ITS ---
TESTICULAR ULTRASOUND (Doppler ultrasound interrogation techniques used as needed for this exam.) Ordering provider: Tray Jewell DO History: . N50.89 - Other specified disorders of the male genital or... . Comparison: None. FINDINGS: TESTICLES: Normal in size. The right measures 3.8x 2.4x 3.3 cm and the left measures 3.9x 2.2x 3 cm. Normal echogenicity bilaterally without mass lesion. Normal Doppler flow bilaterally. EPIDIDYMIDES: Normal in size. The right measures 2 x 0.7 cm and the left 1x1.4 cm. Normal echogenicit y bilaterally. Both demonstrate normal Doppler flow. Small left epididymal cyst measuring 7 x 5 x 6 m m. HYDROCELE: Small bilateral. VARICOCELE: None. OTHER ABNORMALITY: None seen. IMPRESSION: Small bilateral hydrocele. Small left epididymal cyst. Otherwise, normal testicular ultrasound. Reviewed, dictated and finalized at location A. IMPRESSION: Small bilateral hydrocele. Small left epididymal cyst. Otherwise, normal testic ular ultrasound.
== END 2025-01-19 09:23 | disposition home or self-care (01) ==
LOC: GOSHIMG 09:22
PROVIDERS: PCP Internal Medicine; Visit Provider Internal Medicine
DX: N43.3 Hydrocele, unspecified (principal); N50.3 Cyst of epididymis; N50.89 Other specified disorders of the male genital organs
CPT/HCPCS: 76870; 93976

== ENCOUNTER 2025-05-13 15:20 | Emergency (ER) | payer MEDICARE, SELFPAY ==
--- NOTE | ~2025-05-13 | CT_ITS ---
Adrian Townsend EXAMINATION: CT abdomen pelvis wo/w con COMPARISON: No comparisons available. HISTORY: hematuria TECHNIQUE: Axial images were obtained through the abdomen, pelvis pre and post administration of IV contrast. Oral contrast administered. Coronal reconstruction images were obtained from the axial views. CT scan performed using dose optimization techniques including the following automated exposure control; adjustment of mA and/or kV; use of iterative reconstruction technique. Automatic exposure control was used to reduce radiation dose. Permanent radiation dose record is archived to PACS. FINDINGS: CT abdomen: LUNG BASES: Lung bases chronic changes. LIVER: Mild hepatic steatosis. SPLEEN: Unremarkable. KIDNEYS: Right Kidney: Right kidney midpole simple cyst 1 x 1 cm. Left Kidney: Left kidney midpole simple appearing cyst 1 x 1 cm. ADRENAL GLANDS: Left adrenal lesion measures 1.5 x 1 cm Hounsfield units -1 probable benign adrenal adenoma. Right adrenal gland Subcentimeter nodule too small to characterize. PANCREAS: Unremarkable. GALLBLADDER/BILIARY: Unremarkable. No biliary dilatation. STOMACH AND ESOPHAGUS: Visualized stomach and esophagus within normal limits. BOWEL/MESENTERY: Moderate fecal content. Moderate diverticulosis. No colitis or diverticulitis. Appendix normal. Mesentery normal. No dilated loops of small bowel. ADENOPATHY/RETROPERITONEUM: No lymphadenopathy. AORTA/VASCULATURE: Normal caliber aorta. FREE FLUID OR FREE AIR: None. CT pelvis: SOLID ORGANS/REPRODUCTIVE: Unremarkable. BLADDER: Within normal limits. OSSEOUS STRUCTURES: No acute osseous abnormality.No suspicious lesions. OVERLYING SOFT TISSUES: Small fat-containing left inguinal hernia. IMPRESSION: 1. No etiology to explain the patient's hematuria. 2. Incidental findings above Reviewed, dictated and finalized at location P.
--- OUTSIDE RECORDS SUMMARY | 2025-05-13 15:22 | XMS_ITS | Clinical Summary ---
Author Organization [facility] Address [address] [address] Phone Care Team Providers Care Gun Stocker Name Role Phone Kenney Nayak DO Primary Care Provider Allergies No known active allergies Medications Budesonide-Form oterol Fumarate (SYMBICORT IN) take 2 Puffs by inhalation every morning. Active Tiotropium [place] Monohydrate (SPIRIVA HANDIHALER IN) take 1 Cap [...] daily. Active FLUTICASONE PROPIONATE, NASAL, NA 1 [place] by Nasal route every evening. Active atorvastatin [...] 95 04/12/2020 1:49 PM CDT Temperature 36.3 C (97.4 F) 04/12/2020 1:49 PM CDT Respiratory Rate 22 04/12/2020 1:49 PM CDT Oxygen Saturation 95% 04/12/2020 1:49 PM CDT Inhaled Oxygen Concentration - - Weight 128.4 kg (283 lb) 04/12/2020 1:49 PM CDT Height 188 cm (6' 2) 04/12/2020 1:49 PM CDT Body Mass Index 36.34 04/12/2020 1:49 PM CDT Plan of Treatment Health Maintenance Due Date Last Done Comments Hepatitis C Virus (HCV) Screening 1950 TdaP Immunization 1950 Medicare Initial AWV [id number] 08/10/2017 Respiratory Syncytial Virus (RSV) Immunization (Adult) (1 - 1-dose 75+ series) 2024 Influenza Immunization (#1) 04/10/202504/10, 04/08/2017, 04/23/2016, Additional history exists SARS-COV-2 Immunization ( - 2024- season) 2025 05/06/2021, 10/09/2020, 09/09/2020 Pneumococcal Immunization (50+ years) Completed 04/09/2018, 04/08/2017 Pneumococcal Immunization Combined Discontinued 04/09/2018, 04/08/2017 Zoster Immunization Completed 08/24/2018, 05/27/2018, 10/06/2014 Colonoscopy Discontinued 02/15/2020, 05/11, 07/14/2017 Colorectal Cancer Screening Discontinued Cologuard Discontinued Hepatitis B Immunization Aged Out No longer eligible based on patient's age to complete this topic Human Papillomavirus (HPV) Immunization Aged Out No longer eligible based on patient's age to complete this topic Immunochemical Fecal Occult Blood Discontinued Meningococcal Immunization (ACWY) Aged Out No longer eligible based on patient's age to complete this topic Rotavirus Immunization Aged Out No lo nger eligible based on patient's age to complete this topic Insurance [facility]IC[facility] Care Teams Gun Stocker Relationship Specialty Start Date End Date Kenney Nayak DO [address] [place] [address] PCP - General Internal Medicine 05/06/17
--- OUTSIDE RECORDS SUMMARY | 2025-05-13 15:22 | XMS_ITS | Clinical Summary ---
Author Organization [facility] Address [address] [facility] [place] [address] Care Team Providers Care Strawberry Grower Name Role Phone Kenney Nayak DO Primary Care Provider [phone] Source Comments [facility],non-owned Affiliates and Associated Physician Practices is amultiple site organization consisting of ambulatory clinics and hospital sitesin [place], [place], [place] and [place]. This disclosure is being madepursuant to the Care Everywhere program and may not contain all information available regarding this patient. Last updated 18.[facility] [employer] Social History Tobacco Use Types Packs/Day Years Used Date Smoking Tobacco: Never Assessed Sex and Gender Information Value Date Recorded Sex Assigned at Not on file Legal Sex Male 5:57 PM SOLAR PANEL INSTALLATION SUPERVISOR Gender Identity Not on file Sexual Orientation Not on file Plan of Treatment Health Maintenance Due Date Last Done Comments HEPATITIS C SCREENING 04/11/1967 DTAP/TDAP/TD VACCINES (1 - Tdap) 1968 PNEUMOCOCCAL VACCINE 50+ (1 of 1 - PCV) 1999 ZOSTER VACCINE (1 of 2) 1999 Respiratory Syncytial Virus (RSV) Vaccine Pt: or over 60 yrs (1 - 1-dose 75+ series) 2024 DEPRESSION SCREENING 08/10/2024 MEDICARE AWV CALENDAR YEAR 2024 COVID-19 VACCINE ( - 2023-2 5 season) 2025 INFLUENZA VACCINE (#1) 2025 HEPATITIS B VACCINE Aged Out No longe r eligible based on patient's age to complete this topic HIB VACCINE Aged Out No longer eligi ble based on patient's age to complete this topic HPV VACCINE Aged Out No longer eligi ble based on patient's age to complete this topic MENINGOCOCCAL (Group B) VACC INE SHARED DECISION-MAKING Aged Out No longer eligibl e based on patient's age to complete this topic MENINGOCOCCAL GROUPS A/C/Y/W VACCINE Aged Out No longer eligible b ased on patient's age to complete this topic Insurance AETNA MEDICARE ADV AETNA MEDICARE ADV Care Teams Strawberry Grower Relationship Specialty Start Date End Date Kenney Nayak DO [address] [facility] [address] [place] [address] PCP - General 02/14/16
--- OUTSIDE RECORDS SUMMARY | 2025-05-13 15:22 | XMS_ITS | Encounter Summary ---
Author Organization [facility] Address [address] [place] [address] Care Team Providers Care Drywall Hanger Name Role Phone Kenney Nayak DO Primary Care Provider [phone] Encounter Details Date Type Department Care Team (Late st Contact Info) Description 06/27/2023 Lab Requisition [facility] - DermPath Lab [address] [place] [address] Jose L Cali MD [address] [place] [address] Social History Tobacco Use Types Packs/Day Years Used Date Smoking Tobacco: Never Assessed Sex and Gender Information Value Date Recorded Sex Assigned at Not on file Legal Sex Male 5:57 PM COVERSTITCH ELASTIC ATTACHER Gender Identity Not on file Sexual Orientation Not on file documented as of this encounter Plan of Treatment Not on file documented as of this encounter Procedures Procedure Name Priority Date/Time Associated Diagnosis Comments DERMATOPATHOLOGY Routine 06/24/2023 12:0 0 AM COVERSTITCH ELASTIC ATTACHER documented in this encounter Results * DERMATOPATHOLOGY (06/24/2023 12:00 AM COVERSTITCH ELASTIC ATTACHER) Case Report Dermatopathology Report Case: [id number] Authorizing Provider: Jose L Cali MD Collected: 06/24/2023 12:00 AM Ordering Location: [facility] DermPath Lab Received: 06/27/2023 08:00 AM Pathologist: Jo Ann Perdomo MD Specimen: Skin, left cheek at jawline 12:26 PM COVERSTITCH ELASTIC ATTACHER DERMATOPATHOLOGY LABORATORY Final Diagnosis Specimen A. SKIN, left cheek at jawline: HYPERPLASTIC (HYPERTROPHIC) ACTINIC KERATOSIS (L57.0) (see microscopic description) 12:26 PM [facility] DERMATOPATHOLOGY LABORATORY at [address]26 COVERSTITCH ELASTIC ATTACHER Clinical History R/O SCC, BCC, Kulwant, ISK 3 12:26 PM [facility] DERMATOPATHOLOGY LABORATORY Gross Description Specimen A: Received is one formalin filled container labeled with the patient's name and designated left cheek at jawline. The specimen consists of a shave biopsy measuring 7x5x2 mm. Jar 0. 3 12:26 PM [facility] DERMATOPATHOLOGY LABORATORY Microscopic Description Specimen A. SKIN, left cheek at jawline: There is hyperkeratosis. There is epidermal hyperplasia with disorderly maturation of keratinocytes with nuclear pleomorphism confined to the lower half of the epidermis. 3 12:26 PM [facility] DERMATOPATHOLOGY LABORATORY Disclaimer An external and internal positive and negative controls are appropriate for the histochemical, immunohistochemical and immunofluorescence stain(s) in this case (if any), except where stated explicitly. The performance characteristics of the stain(s) cited in this report were developed and its performance characteristic determined by the Dermatopathology Laboratory at [facility], directed by Dr. Stu Murguia. These tests need not be, and therefore are not, approved by the [place] Food and Drug Administration. The tests are used for clinical purposes. Billing Codes Specimen Charges Stain Charges 57597 1 3 12:26 PM [facility] DERMATOPATHOLOGY LABORATORY Embedded Images 3 12:26 PM [facility] DERMATOPATHOLOGY LABORATORY Pathology/Cytolog y TISSUE SPECIMEN FROM SKIN / Unknown 06/24/2023 06/27/2023 8:00 AM COVERSTITCH ELASTIC ATTACHER Jose L Cali MD LAB - PATHOLOGY/CYTOLOGY ORD ERABLES Final Result DERMATOPATHOLOGY LABORATORY [facility] - Department of Dermatology [address] [place] [address], [facility] [phone] documented in this encounter Visit Diagnoses Not on filedocumented in this encounter Care Teams Drywall Hanger Relationship Specialty Start Date End Date Kenney Nayak DO [address] [facility] [address] [place] [address] PCP - General 02/14/16 documented as of this encounter
--- OUTSIDE RECORDS SUMMARY | 2025-05-13 15:22 | XMS_ITS | Encounter Summary ---
Author Organization [facility] Address [address] [place] [address] Care Team Providers Care Environmental Services Director Name Role Phone Kenney Nayak DO Primary Care Provider [phone] Encounter Details Date Type Department Care Team (Late st Contact Info) Description 02/12/2020 Lab Requisition [facility] [address] [place] [address] Umesh Brewer DO [address] [place] [address] Social History Tobacco Use Types Packs/Day Years Used Date Smoking Tobacco: Never Assessed Sex and Gender Information Value Date Recorded Sex Assigned at Not on file Legal Sex Male 5:57 PM SLOT EDITOR Gender Identity Not on file Sexual Orientation [...] Not detected, Invalid 02/13/2020 6:11 PM CDT [facility] Microbiology SPECIMEN FROM NASOPHARYNGEAL STRUCTURE / Unknown Collection / Unknown 02/12/2020 9:30 AM CDT 02/12/2020 4:36 PM CDT Narrative [facility] - 02/13/2020 6:11 PM CDT This Real Time RT-PCR assay was developed and its performance characteristics determined by [facility]. This test has been authorized [...] sooner. Umesh Brewer DO LAB - MICROBIOLOGY ORDERABLES F inal Result [facility] [address] [place] [phone] documented in this encounter Visit Diagnoses Not on filedocumented in this encounter Additional Health Concerns Infection Onset Date Last Indicated Resolved Time COVID-19 Under Investigation 02/12/2020 02/12/2020 02/13/2020 6:11 PM CDT documented as of this encounter Care Teams Environmental Services Director Relationship Specialty Start Date End Date Kenney Nayak DO [address] [facility] [address] [address] PCP - General 02/14/16 documented as of this encounter
--- OUTSIDE RECORDS SUMMARY | 2025-05-13 15:22 | XMS_ITS | Encounter Summary ---
Author Organization [facility] Address [address] [place] [address] Care Team Providers Care Insurance Writer Name Role Phone Kenney Nayak DO Primary Care Provider [phone] Encounter Details Date Type Department Care Team (Late st Contact Info) Description 08/25/2019 Lab Requisition [facility] DermPath Lab [address] [place] [address] Jose L Cali MD [address] [place] [address] Social History Tobacco Use Types Packs/Day Years Used Date Smoking Tobacco: Never Assessed Sex and Gender Information Value Date Recorded Sex Assigned at Not on file Legal Sex Male 5:57 PM DRIVER 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 Gender Identity Not on file Sexual Orientation Not on file documented as of this encounter Plan of Treatment Not on file documented as of this encounter Procedures Procedure Name Priority Date/Time Associated Diagnosis Comments DERMATOPATHOLOGY Routine 08/24/2019 12:0 0 AM DRIVER 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 documented in this encounter Results * DERMATOPATHOLOGY (08/24/2019 12:00 AM DRIVER 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) Case Report Dermatopathology Report Case: [id number] Authorizing Provider: Jose L Cali MD Collected: 08/24/2019 12:00 AM Ordering Location: [facility] DermPath Lab Received: 08/25/2019 12:34 PM Pathologist: Gerard Murguia MD Specimen: Skin, right upper inner arm 0 12:07 PM DRIVER 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 DERMATOPATHOLOGY LABORATORY Final Diagnosis Specimen A. SKIN, right upper inner arm: ACROCHORDON (SOFT FIBROMA, SKIN TAG) (L91.8) 0 12:07 PM DRIVER 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 DERMATOPATHOLOGY LABORATORY at 1207 DRIVER 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 Clinical History R/O ISK, nevus, tag. 0 12:07 PM [facility] DERMATOPATHOLOGY LABORATORY Gross Description Specimen A: Received is one formalin filled container labeled with the patient's name and designated right upper inner arm. The specimen consists of a shave biopsy measuring [id number], bisected. Jar 0. 0 12:07 PM [facility] DERMATOPATHOLOGY LABORATORY Microscopic Description Specimen A. SKIN, right upper inner arm: There is a gently folded epidermis surrounding a connective tissue core in which fat and collagen are intermingled. 0 12:07 PM [facility] DERMATOPATHOLOGY LABORATORY Disclaimer An external and internal positive and negative controls are appropriate for the histochemical, immunohistochemical and immunofluorescence stain(s) in this case (if any), except where stated explicitly. The performance characteristics of the stain(s) cited in this report were developed and its performance characteristic determined by the Dermatopathology Laboratory at [facility], directed by Dr. Stu Murguia. These tests need not be, and therefore are not, approved by the [place] Food and Drug Administration. The tests are used for clinical purposes. Billing Codes Specimen Charges Stain Charges 70237 1 0 12:07 PM [facility] DERMATOPATHOLOGY LABORATORY Embedded Images 0 12:07 PM [facility] DERMATOPATHOLOGY LABORATORY Pathology/Cytolog y TISSUE SPECIMEN FROM SKIN / Unknown 08/24/2019 08/25/2019 12:34 PM DRIVER 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 Jose L Cali MD LAB - PATHOLOGY/CYTOLOGY ORD ERABLES Final Result DERMATOPATHOLOGY LABORATORY [facility] - Department of Dermatology [address] [place] [address], [address]th [place] [address], [facility] [phone] documented in this encounter Visit Diagnoses Not on filedocumented in this encounter Additional Health Concerns Infection Onset Date Last Indicated Resolved Time COVID-19 Under Investigation 02/12/2020 02/12/2020 02/13/2020 6:11 PM CDT documented as of this encounter Care Teams Insurance Writer Relationship Specialty Start Date End Date Kenney Nayak DO [address] [facility] [address] [place] [address] PCP - General 02/14/16 documented as of this encounter
--- OUTSIDE RECORDS SUMMARY | 2025-05-13 15:22 | XMS_ITS | Encounter Summary ---
Author Organization [facility] Address [address] [facility] [place] [address] Care Team Providers Care Manager Clinical Informatics Name Role Phone Kenney Nayak DO Primary Care Provider Encounter Details Date Type Department Care Team (Late st Contact Info) Description 07/24/2021 Lab Requisition [facility] DermPath Lab [address] [place] [address] Jose L Cali MD [address] [place], [place] [id number] Social History Tobacco Use Types Packs/Day Years Used Date Smoking Tobacco: Never Assessed Sex and Gender Information Value Date Recorded Sex Assigned at Not on file Legal Sex Male 5:57 PM CAMPAIGN ADVISOR Gender Identity Not on file Sexual Orientation Not on file documented as of this encounter Plan of Treatment Not on file documented as of this encounter Procedures Procedure Name Priority Date/Time Associated Diagnosis Comments DERMATOPATHOLOGY Routine 07/23/2021 12:0 0 AM CAMPAIGN ADVISOR documented in this encounter Results * DERMATOPATHOLOGY (07/23/2021 12:00 AM CAMPAIGN ADVISOR) Case Report Dermatopathology Report Case: [id number] Authorizing Provider: Jose L Cali MD Collected: 07/23/2021 12:00 AM Ordering Location: [facility] DermPath Lab Received: 07/24/2021 12:50 PM Pathologist: Ananya Wilye MD Specimen: Skin, left proximal extensor forearm 8:34 AM CAMPAIGN ADVISOR DERMATOPATHOLOGY LABORATORY Amended Report Gross description changed from shave biopsy to shave removal. 8:34 AM CAMPAIGN ADVISOR DERMATOPATHOLOGY LABORATORY Final Diagnosis Specimen A. 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 Lopez's. BCC. Check margins 8:34 AM [facility] DERMATOPATHOLOGY LABORATORY Gross Description Specimen A: Received is one formalin filled container labeled with the patient's name and designated left proximal extensor forearm. The specimen consists of a shave removal measuring 38z23g7 mm, inked. Jar 0. 8:34 AM [facility] DERMATOPATHOLOGY LABORATORY Microscopic Description Specimen A. SKIN, left proximal extensor forearm: The epidermis shows parakeratosis, full thickness disorderly maturation of keratinocytes, mitoses at different levels, and dyskeratotic cells. This lesion is not present at the sampled margin of the specimen. 8:34 AM [facility] DERMATOPATHOLOGY LABORATORY Disclaimer An external [...] purposes. Billing Codes Specimen Charges Stain Charges 93313 1 8:34 AM [facility] DERMATOPATHOLOGY LABORATORY Embedded Images 8:34 AM [facility] DERMATOPATHOLOGY LABORATORY Pathology/Cytolog y TISSUE SPECIMEN FROM SKIN / Unknown 07/23/2021 07/24/2021 12:50 PM [facility] Jose L Cali MD LAB - PATHOLOGY/CYTOLOGY ORD ERABLES Edited Result - Final DERMATOPATHOLOGY LABORATORY [facility] - Department of Dermatology [address] [place] [phone] documented in this encounter Visit Diagnoses Not on filedocumented in this encounter Care Teams Manager Clinical Informatics Relationship Specialty Start Date End Date Kenney Nayak DO [address] [facility] [address] [place] [address] PCP - General 02/14/16 documented as of this encounter
[2025-05-13 15:33] VITALS: BP 169/94; PULSE 102; RESP 18; TEMP 36.7; O2SAT 96
--- NOTE | 2025-05-13 16:02 | ED.GENADULT ---
HPI - General Adult General Chief complaint: Urogenital-Male Stated complaint: hematuria Time Seen by Provider: 05/13/25 15:35 History of Present Illness HPI narrative: Patient 75-year-old gentleman who presents emergency department with chief complaint hematuria. Patient reports that he had an episode last night of blood in his urine patient states that it became very sick and reports that he then urinated a large clot and then subsequently his urine was clear the patient denies fever denies trauma denies being on blood thinners or anti-platelet therapy Related Data Home Medications ?Medication ?Instructions ?Recorded ?Confirmed ?Last Taken ?Type doxycycline hyclate 20 mg tablet 20 mg PO HS 05/20/19 01/17/25 06/13/19 History multivitamin with minerals-folic 0.4 mg PO DAILY 05/20/19 01/17/25 06/11/19 History acid 0.4 mg tablet (Adult One Daily Multivitamin) aspirin 81 mg tablet,delayed 81 mg PO DAILY 12/14/19 01/17/25 Unknown History release magnesium gluconate 27 mg 27 mg PO DAILY 12/14/19 01/17/25 Unknown History magnesium (500 mg) tablet (Mag-G) cetirizine 10 mg tablet (Zyrtec) 10 mg PO DAILY 03/18/23 01/17/25 Unknown History Allergies Allergy/AdvReac Type Severity Reaction Status Date / Time No Known Allergies Allergy Verified 05/13/25 15:35 Review of Systems Review of Systems: A 10 system review of systems was completed on the patient and is negative except for what is stated in the HPI. Nursing and ancillary documentation was reviewed. [facility] Past Medical History Medical History Type 2 diabetes mellitus without complication Tobacco abuse Swelling of knee joint, left Sleep apnea, unspecified Pure hypercholesterolemia, unspecified Pure hypercholesterolemia Primary osteoarthritis of left knee Other hyperlipidemia Other fatigue Obstructive sleep apnea (adult) (pediatric) Need for hepatitis C screening test Hx of colonic polyp Essential hypertension Encounter for screening for malignant neoplasm of prostate Cardiovascular risk factor Obesity (BMI 30-39.9) Obesity BMI 37.0-37.9, adult DVT prophylaxis Osteoarthritis Neuropathy MARYANN (obstructive sleep apnea) uses orthotic Hyperlipidemia COPD (chronic obstructive pulmonary disease) Diabetes type 2, controlled Surgical History Surgical History H/O hemorrhoidectomy 03/25/23 Proctosigmoidoscopy, excision right posterior complex internal and external hemorrhoids, rubber-band ligation left lateral internal hemorrhoids History of total knee replacement (TKR) Status post total left knee replacement Family History Family History Sibling Patient's sister is in good health Family history of diabetes mellitus in first degree relative Father Cerebrovascular accident Patient's father is Family history of cardiovascular disease Mother Patient's mother is Family history of arthritis Family history of pancreatic cancer, Onset Age: 82 Family history of malignant neoplasm Other Diabetes mellitus Family history of malignant neoplasm of breast Social History Social History Smoking packs per day: 1 Smoking cigarettes per day: 20.0 Years smoked: 50 Smoking pack-years: 50.00 Smoking status: Former smoker Tobacco type: cigarettes Second hand tobacco smoke exposure: No Smoking end date: 08/10/18 Alcohol intake: current Alcohol use details: occasional alcohol use Substance use: never Substance use type: does not use Do You Feel Safe in your Home?: Yes Lack of Transportation: No Lack of Food: Never True Current Housing: I Have Housing Concerned About Future Housing: No Difficulty Paying Gas/Electric Bills: No Difficulty Paying for Meds: No Currently Unemployed: No Education: High School Diploma/GED Difficulty w/ Childcare or Family Care: No Living arrangements: with family Occupation/Education: 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 HEAD: Normocephalic, atraumatic. EYES: PERRLA and EOMI. ENT: Nares clear, no rhinorrhea or epistaxis. Mucous membranes moist. NECK: Supple. CHEST: Clear to auscultation. No respiratory distress. HEART: Regular rate and rhythm. No murmur heard. Normal peripheral pulses. ABDOMEN: Soft, nontender, nondistended, normal active bowel sounds. EXTREMITIES: Normal range of motion. No edema. SKIN: Warm, dry, no rash. NEURO: No focal deficits. Alert and oriented x3. PSYCH: Normal mood and affect. Course Vital Signs Vital signs: Vital Signs Temperature 36.7 C 05/13/25 15:33 Pulse Rate 102 H 05/13/25 15:33 Respiratory Rate 18 05/13/25 15:33 Blood Pressure 169/94 H 05/13/25 15:33 Pulse Oximetry 96 05/13/25 15:33 Oxygen Delivery Room Air 05/13/25 15:33 Temperature 36.7 C 05/13/25 15:33 Pulse Rate 102 H 05/13/25 15:33 Respiratory Rate 18 05/13/25 15:33 Blood Pressure 169/94 H 05/13/25 15:33 Pulse Oximetry 96 05/13/25 15:33 Oxygen Delivery Room Air 05/13/25 15:33 Medical Decision Making Vital Signs Vital Signs: Vital Signs Temperature 36.7 C 05/13/25 15:33 Pulse Rate 102 H 05/13/25 15:33 Respiratory Rate 18 05/13/25 15:33 Blood Pressure 169/94 H 05/13/25 15:33 Pulse Oximetry 96 05/13/25 15:33 Oxygen Delivery Room Air 05/13/25 15:33 Temperature 36.7 C 05/13/25 15:33 Pulse Rate 102 H 05/13/25 15:33 Respiratory Rate 18 05/13/25 15:33 Blood Pressure 169/94 H 05/13/25 15:33 Pulse Oximetry 96 05/13/25 15:33 Oxygen Delivery Room Air 05/13/25 15:33 Lab Data 05/13/25 16:35 05/13/25 16:35 Labs: Lab Results 05/13/25 Range/Units 16:35 WBC 8.6 (4.5-10.0) K/mm3 RBC 4.46 L (4.6-6.20) M/mm3 Hgb 13.3 L (14.0-18.0) g/dL Hct 40.9 L (42.0-52.0) % MCV 91.7 (80-100) fl MCH 29.8 (26-34) pg MCHC 32.5 (32-36) g/dl RDW 13.5 (11.5-14.5) % Plt Count 204 (150-375) k/mm3 MPV 9.7 (7.4-10.4) fl Immature Gran % (Auto) 0.3 (0-0.5) % Neut % (Auto) 66.5 (45.5-73.1) % Lymph % (Auto) 20.3 (18.3-44.2) % [place] % (Auto) 8.7 H (2.6-8.5) % Eos % (Auto) 3.4 (0-4.4) % Baso % (Auto) 0.8 (0.2-1.2) % Lymph # (Auto) 1.75 (0.9-3.2) K/mm3 [place] # (Auto) 0.8 H (0.1-0.6) K/mm3 Eos # (Auto) 0.3 (0-0.3) K/mm3 Baso # (Auto) 0.1 (0.0-0.1) K/mm3 Abs Immat Gran (auto) 0.03 (0.00-0.031) K/mm3 Absolute Neuts (auto) 5.7 (1.3-6.7) K/mm3 Absolute Nucleated RBC 0.000 (0.0-0.012) K/mm3 Nucleated RBC % 0.0 (0.0-0.2) % PT 13.2 (11.1-14.7) Seconds INR 1.0 APTT 30.9 (22.3-36.8) Seconds Sodium 136 L (137-145) mmol/L Potassium 3.9 (3.4-5.0) mmol/L Chloride 103 (98-107) mmol/L Carbon Dioxide 28 (22-30) mmol/L Anion Gap 5 (4-12) mmol/L BUN 19 (9-20) mg/dL Creatinine 0.85 (0.7-1.3) mg/dL Estim Creat Clear Calc 89 ml/min Estimated GFR > 60 (59 - ) Glucose 121 H (65-110) mg/dL Calcium 9.1 (8.4-10.2) mg/dL Total Bilirubin 0.6 (0.2-1.3) mg/dL AST 26 (17-59) U/L ALT 24 (6-50) U/L Alkaline Phosphatase 108 (38-126) U/L Total Protein 6.8 (6.3-8.2) g/dL Albumin 3.9 (3.5-5.1) g/dL Urine Color Yellow (Yellow) Urine Appearance Clear (Clear) Urine pH 6.0 (5.0-9.0) Ur Specific [place] 1.017 (1.001-1.035) Urine Protein Negative (Negative) mg/dL Urine Glucose (UA) Negative (Negative) mg/dL Urine Ketones Trace H (Negative) mg/dL Ur Blood (Man) 1+ H (Negative) Urine Nitrate Negative (Negative) Urine Bilirubin Negative (Negative) Urine Urobilinogen 1.0 (<2.0) mg/dL Leukocyte Esterase Rfl Negative (Negative) PEMA/UL Urine RBC 3-5 H (0-2) /hpf Urine WBC 0-5 (0-3) /hpf Ur Squamous Epith Cells None seen (Few) /hpf Urine Bacteria None seen /hpf Urine Casts 0-2 Discharge Plan Discharge Clinical Impression: Microscopic hematuria Patient Disposition: Home Condition: Stable Instructions: Antibiotic Form, Hematuria (ED) Patient Language: Mexican Prescriptions: No Action aspirin 81 mg tablet,delayed release (DR/EC) 81 mg PO DAILY magnesium gluconate [Mag-G] 27 mg magnesium (500 mg) tablet 27 mg PO DAILY albuterol sulfate 90 mcg/actuation HFA aerosol inhaler 1 - 2 puff inhalation Q4-6H PRN (Reason: shortness of breath or wheezing) Qty: 8.5 2RF ciprofloxacin HCl 500 mg tablet 500 mg PO Q12H Qty: 20 0RF doxycycline hyclate 20 mg Tablet 20 mg PO HS multivit with min-folic acid [Adult One Daily Multivitamin] 0.4 mg Tablet 0.4 mg PO DAILY cetirizine [Zyrtec] 10 mg Tablet 10 mg PO DAILY Metamucil Sugar-Free (aspart) 3.4 gram/5.8 gram powder 1 ea PO BID Qty: 60 0RF Trelegy Ellipta 100-62.5-25 mcg blister with device See Rx Instructions .ROUTE .COMPLEX Qty: 60 11RF Dose Instruction: TAKE 1 PUFF BY MOUTH EVERY 24 HOURS. RINSE AND SPIT AFTERWARD Rx Instructions: TAKE 1 PUFF BY MOUTH EVERY 24 HOURS. RINSE AND SPIT AFTERWARD metformin 500 mg tablet 1,000 mg PO BID Qty: 360 2RF fluticasone propionate 50 mcg/actuation spray,suspension 2 spray intranasal DAILY PRN (Reason: nasal congestion) Qty: 48 3RF Rx Instructions: administer into each nostril semaglutide 2 mg/dose (8 mg/3 mL) pen injector 2 mg subcut WEEKLY Qty: 3 6RF (DME) OneTouch Verio test strips Strip See Rx Instructions .ROUTE .COMPLEX Qty: 100 5RF Dose Instruction: USE TO TEST ONCE DAILY Rx Instructions: USE TO TEST ONCE DAILY glipizide 10 mg tablet extended release 24hr See Rx Instructions .ROUTE .COMPLEX Qty: 90 1RF Dose Instruction: TAKE 1 TABLET BY MOUTH EVERY DAY Rx Instructions: TAKE 1 TABLET BY MOUTH EVERY DAY lisinopril 5 mg tablet 5 mg PO DAILY Qty: 90 3RF atorvastatin 20 mg tablet 20 mg PO HS Qty: 90 3RF Follow-up/Referrals: Tray Jewell DO [Primary Care Provider, Internal Medicine] Brandin Harley MD [Physician, Urology] Time of Disposition: 18:17
[2025-05-13 16:43] LABS: Hematocrit 40.9 % (42.0-52.0); Hemoglobin 13.3 g/dL (14.0-18.0); Immature Granulocyte Percent A 0.3 % (0-0.5); Lymphocytes Absolute Auto 1.75 K/mm3 (0.9-3.2); Mean Corpuscular HGB Conc 32.5 g/dl (32-36); Mean Corpuscular Hemoglobin 29.8 pg (26-34); Mean Corpuscular Volume 91.7 fl (80-100); Nucleated Red Blood Cells Absolute Auto 0.000 K/mm3 (0.0-0.012); Nucleated Red Blood Cells Perc 0.0 % (0.0-0.2); Platelet Count Result 204 k/mm3 (150-375); Red Blood Count 4.46 M/mm3 (4.6-6.20); White Blood Count 8.6 K/mm3 (4.5-10.0)
[2025-05-13 16:47] LABS: Add Urine Microscopic? YES; Appearance Urine Clear (Clear); Glucose Urine UA Negative (Negative); Leukocyte Esterase Ur Negative LEU/UL (Negative); Nitrate Urine Negative (Negative); Non Pathogenic Casts 0-2; Specific Grav Ur 1.017 (1.001-1.035)
[2025-05-13 16:55] LABS: INR 1.0; Partial Thromboplastin Time 30.9 Seconds (22.3-36.8); Prothrombin Time 13.2 Seconds (11.1-14.7)
[2025-05-13 16:56] LABS: Alanine Aminotransferase 24 U/L (6-50); Albumin Level 3.9 g/dL (3.5-5.1); Alkaline Phosphatase 108 U/L (38-126); Anion Gap 5 mmol/L (4-12); Aspartate Amino Transferase 26 U/L (17-59); Bilirubin,Total 0.6 mg/dL (0.2-1.3); Blood Urea Nitrogen 19 mg/dL (9-20); Calcium 9.1 mg/dL (8.4-10.2); Carbon Dioxide 28 mmol/L (22-30); Chloride 103 mmol/L (98-107); Estimated CRCL calculation 89 ml/min; Estimated Glomerular Filt Rate > 60; Glucose 121 mg/dL (65-110); Potassium 3.9 mmol/L (3.4-5.0); Sodium 136 mmol/L (137-145); Total Protein 6.8 g/dL (6.3-8.2)
[2025-05-13 18:40] VITALS: BP 166/93; PULSE 81; RESP 16; TEMP 36.6; O2SAT 97
== END 2025-05-13 18:41 | disposition home or self-care (01) ==
PROVIDERS: Emergency Provider Emergency Medicine; PCP Internal Medicine
DX: R31.29 Other microscopic hematuria (principal); I10 Essential (primary) hypertension; J44.9 Chronic obstructive pulmonary disease, unspecified; E11.40 Type 2 diabetes mellitus with diabetic neuropathy, unspecified; E78.00 Pure hypercholesterolemia, unspecified; M17.12 Unilateral primary osteoarthritis, left knee; Z96.652 Presence of left artificial knee joint; G47.33 Obstructive sleep apnea (adult) (pediatric); Z86.0100 Personal history of colon polyps, unspecified; Z87.891 Personal history of nicotine dependence; Z79.82 Long term (current) use of aspirin; Z79.84 Long term (current) use of oral hypoglycemic drugs; Z79.85 Long-term (current) use of injectable non-insulin antidiabetic drugs; Z79.899 Other long term (current) drug therapy
CPT/HCPCS: 36415; 74178; 80053; 81001; 85025; 85610; 85730; 99284; Q9967